=== PATIENT | female | born 1980 | race Caucasian/White ===

== ENCOUNTER 2016-08-14 16:41 | Emergency (ER) | payer OTHER ==
[2016-08-14 16:52] VITALS: BP 129/73; PULSE 78; RESP 18; TEMP 97.9
[2016-08-14] MEDS ORDERED: DIPH,PERTUS(ACELL)TETVAC-LF 0.5 ML VIAL IM ONE (16:53)
--- NOTE | 2016-08-14 17:08 | XR ---
EXAMINATION TYPE: XR finger RT DATE OF EXAM: 08/14/2016 5:02 PM COMPARISON: NONE HISTORY: Injury with pain. TECHNIQUE: 3 views of right third finger are acquired. FINDINGS: There is acute comminuted displaced intra-articular fracture involving distal one half of t he third middle phalanx. Overlying soft tissue is unremarkable. IMPRESSION: As above. (Initial encounter close type post traumatic fracture).
[2016-08-14] MEDS ORDERED: CLINDAMYCIN 150 MG/ML 4 ML VIAL IM STA (17:42)
--- NOTE | 2016-08-14 17:46 | ED ---
Wound/Laceration HPI - General Chief Complaint: Wound/Laceration Stated Complaint: Finger Laceration Time Seen by Provider: 08/14/16 17:00 Source: patient, RN notes reviewed Mode of arrival: ambulatory Limitations: no limitations - History of Present Illness Initial Comments: 36-year-old female presents to the emergency Department chief complaint of right finger laceration. Patient states she did this today. Patient states that she is not seeing her tetanus. Patient denies any other injuries from the incident. Patient denies loss of sensation but states she does not have movement of the distal aspect of the finger. Patient denies any other injuries. Patient denies any recent fever, chills, shortness of breath, chest pain, back pain, abdominal pain, nausea vomiting, numbness or tingling, dysuria or hematuria, constipation or diarrhea, headaches or visual changes, or any other current symptoms. - Related Data Previous Rx's Medication Instructions Recorded Clindamycin [Cleocin] 450 mg PO Q8HR #90 capsule 08/14/16 Allergies Allergy/AdvReac Type Severity Reaction Status Date / Time cefaclor [From Ceclor] Allergy Unknown Verified 08/14/16 16:49 Review of Systems ROS Statement: Those systems with pertinent positive or pertinent negative responses have been documented in the HPI. ROS Other: All systems not noted in ROS Statement are negative. Past Medical History Past Medical History: No Reported History History of Any Multi-Drug Resistant Organisms: None Reported Past Surgical History: No Surgical Hx Reported Past Psychological History: No Psychological Hx Reported Smoking Status: Current every day smoker Past Alcohol Use History: Occasional Past Drug Use History: None Reported General Exam - General Exam Comments Initial Comments: General: The patient is awake and alert, in no distress, and does not appear acutely ill. Neck: The neck is supple, there is no tenderness or JVD. Cardiovascular: There is a regular rate and rhythm. No murmur, rub or gallop is appreciated. Respiratory: Lungs are clear to auscultation, respirations are non-labored, breath sounds are equal. No wheezes, stridor, rales, or rhonchi. Musculoskeletal: Sensation to have a 2+ pulses. Her strength. Patient does appear to 3 cm laceration along the dorsal aspect of the right middle finger to the distal aspect. Patient does appear to have an open fracture that does appear to have any involvement to the fact patient has normal range of motion of the DIP joint in the extension function. Patient has full flexion function. Neurological: CN II-XII intact, There are no obvious motor or sensory deficits. Coordination appears grossly intact. Speech is normal. Skin: Skin is warm and dry and no rashes or lesions are noted. Psychiatric: Normal mood and affect. Limitations: no limitations Course Vital Signs 08/14/16 16:49 Temperature 97.9 F Pulse Rate 78 Respiratory 18 Rate Blood Pressure 129/73 O2 Sat by Pulse 100 Oximetry Procedures - Procedures Initial comment: The skin was anesthetized with 1% lidocaine. The laceration was then cleansed with Betadine and irrigated with normal saline. The wound was inspected, and there isevidence of injury to deep structures and tendon. No foreign body was noted in the wound. A total of 2 skin sutures were placed utilizing 5-0 nylon to the right middle finger laceration. This was done by loose approximation due to the extent of the patient's injury. Patient will follow-up with hand surgery for additional care. Medical Decision Making - Medical Decision Making 36-year-old female presents to the emergency Department chief complaint of right finger laceration. Patient has extensive fracture along with tendon injury noted. We did loosely approximate the wound with 2 sutures in splint the patient for follow-up with hand. We did give her antibiotics. We discussed follow-up and return parameters and all patient's questions. She stated that she understood the plan. This time she will be discharged home. - Radiology Data Radiology results: report reviewed, image reviewed Disposition Clinical Impression: Laceration of right middle finger with tendon involvement, Fracture of phalanx of right middle finger, Crushing injury of finger of right hand Disposition: HOME SELF-CARE Condition: Stable Instructions: Laceration (ED) Additional Instructions: Please use medication as discussed. Please follow up with family doctor if symptoms have not improved over the next two days. Please return to the emergency room if your symptoms increase or worsen or for any other concerns. Prescriptions: Clindamycin [Cleocin] 450 mg PO Q8HR #90 capsule Referrals: Erickson Sims DO [Doctor of Osteopathic Medicine] - 1-2 days Time of Disposition: 17:46
== END 2016-08-14 18:00 | disposition home or self-care (01) ==
LOC: EC 16:41
DX: S61.212A Laceration without foreign body of right middle finger without damage to nail, initial encounter (principal); Z23 Encounter for immunization; Z88.8 Allergy status to other drugs, medicaments and biological substances; F17.200 Nicotine dependence, unspecified, uncomplicated; W45.8XXA Other foreign body or object entering through skin, initial encounter; Y92.89 Other specified places as the place of occurrence of the external cause
CPT/HCPCS: 12013; 90471; 90715; 96372; 99283

== ENCOUNTER → 2017-07-01 | Outpatient (CLI) | payer OTHER ==
--- NOTE | 2017-07-01 14:30 | US ---
EXAMINATION TYPE: US OB <=14 wks transvag DATE OF EXAM: 07/01/2017 COMPARISON: NONE CLINICAL HISTORY: Z36 Confirm Dates. LGA EXAM PERFORMED: Transvaginal (TV) and Transabdominal (TA) EXAM MEASUREMENTS: GESTATIONAL AGE / DATING Physician Established: not established yet Dates by LMP: (9 weeks/3 days) EDC: 01/31/2018 Dates by First Scan: No previous; this is first scan Dates by Current Scan for: (10 weeks/2 days) EDC: 01/25/2018 MATERNAL ANATOMY Uterus: 12.0 x 5.6 x 7.4cm, antegrade Right Ovary: 3.1 x 2.2 x 2.9cm Left Ovary: 2.7 x 1.6 x 2.1cm Post CDS / Adnexa: wnl Presence of free fluid: none seen GESTATION / SURVEY CRL: 3.4cm (10 weeks/2 days) MSD: wnl Yolk Sac (normal less than 6mm): 5mm Heart Rate: 175 bpm Rhythm: Normal IUP: Live IUP IMPRESSION: Single live intrauterine with a sonographic age of 10 weeks and 2 days and estimated date o f delivery of 01/25/2018. Dates are within one week of the menstrual age.
== END | disposition home or self-care (01) ==
LOC: RADUSWWP 13:34
PROVIDERS: ATTEND Obstetrics & Gynecology
DX: Z36.9 Encounter for antenatal screening, unspecified (principal); Z3A.10 10 weeks gestation of pregnancy
CPT/HCPCS: 76801; 76817

== ENCOUNTER 2018-01-27 06:00 | Inpatient (IN) | payer OTHER ==
--- NOTE | 2018-01-26 17:10 | P.HPOB ---
History of Present Illness H&P Date: 01/26/18 Chief Complaint: Induction of labor This is a 38-year-old female 1 para 0 with an estimated date of confinement of 01/25/2018, estimated gestational age of 40-2/7 weeks, who presents to labor and delivery for induction of labor secondary to postdates. She admits to good movement. She has been getting regular nonstress test due to advanced maternal age. She has been feeling irregular contractions and pressure. labs: Hepatitis B surface antigen-negative RPR-nonreactive Rubella-immune Blood type-O+ Antibody screen-negative HIV-nonreactive Hemoglobin-13.5 Random glucose-81 One hour Glucola-128 Group B streptococcus-negative Obstetrical history: Gynecologic history: No history of sexual transmitted diseases. Social history: She is single. She works part-time as a independent contractor. Review of Systems Constitutional: Denies chills, Denies fever Eyes: denies blurred vision, denies pain Cardiovascular: Denies chest pain, Denies shortness of breath Respiratory: Denies cough Gastrointestinal: Reports abdominal pain (Irregular contractions) Genitourinary: Reports pelvic pain, Reports Musculoskeletal: Reports low back pain Integumentary: Denies pruritus, Denies rash Neurological: Denies numbness, Denies weakness Psychiatric: Denies anxiety, Denies depression Past Medical History Past Medical History: No Reported History History of Any Multi-Drug Resistant Organisms: None Reported Past Surgical History: No Surgical Hx Reported Past Psychological History: No Psychological Hx Reported Smoking Status: Former smoker Past Alcohol Use History: None Reported Past Drug Use History: None Reported Medications and Allergies Home Medications Medication Instructions Recorded Confirmed Type Pnv,Calcium 72/Iron/Folic Acid 1 each PO 01/26/18 History [ Plus Tablet] Allergies Allergy/AdvReac Type Severity Reaction Status Date / Time cefaclor [From [facility]] Allergy Rash/Hives Verified 01/26/18 17:07 Exam Osteopathic Statement: *. No significant issues noted on an osteopathic structural exam other than those noted in the History and Physical/Consult. HEENT: Within normal limits Heart: Regular rate and rhythm Lungs: Clear to auscultation bilaterally Abdomen: Cervix: 1 cm/60%/-2 station heart tones: 140s by Doppler Extremities: Negative Homans Assessment and Plan (1) Post-dates Status: Acute Code(s): O48.0 - POST-TERM SNOMED Code(s): 73030851 (2) Advanced maternal age (AMA) in Status: Acute Code(s): RQG3507 - SNOMED Code(s): 846815238 Plan: Proceed with oxytocin induction of labor. Expectant management. Epidural anesthesia if desired.
[2018-01-27] MEDS ORDERED: CARBOPROST TROMETHAMINE 250 MCG/ML 1 ML AMP IM PRN (06:21)
[2018-01-27] MEDS ORDERED: OXYTOCIN 20 UNITS/1000 ML NS 1,000 ML IV SCH ×2 (06:21→23:12)
[2018-01-27] MEDS ORDERED: TERBUTALINE 1 MG/ML VIAL SQ PRN (06:21)
[2018-01-27] MEDS ORDERED: OXYTOCIN 10 UNIT/ML 1 ML VIAL IM PRN (06:21)
[2018-01-27] MEDS ORDERED: LIDOCAINE 1% 20 ML VIAL (10MG/ML) FOR IV START INTRADERMA PRN (06:21)
[2018-01-27] MEDS ORDERED: LIDOCAINE 0.5% (PF) 5 MG/ML (50 ML SDV) SQ PRN (06:21)
[2018-01-27] MEDS ORDERED: METHYLERGONOVINE 0.2 MG/ML 1 ML AMP IM PRN (06:21)
[2018-01-27] MEDS: LACTATED RINGERS 1,000 ML IV SCH ×4 (06:35→23:24)
[2018-01-27 06:41] VITALS: BMI 36.6
[2018-01-27 06:42] LABS: Basophils % (A) 0 %; Eosinophils # (A) 0.2 k/uL (0-0.7); Eosinophils % (A) 1 %; HCT 37.8 % (34.0-46.0); HGB 12.9 gm/dL (11.4-16.0); Lymphocytes % (A) 18 %; MCH 30.5 pg (25.0-35.0); MCV 89.7 fL (80.0-100.0); Mean Platelet Volume 7.4; Monocytes # (A) 0.6 k/uL (0-1.0); Monocytes % (A) 6 %; Neutrophils # (A) 8.2 k/uL (1.3-7.7); Neutrophils % (A) 73 %; Platelet Count 269 k/uL (150-450); RBC 4.21 m/uL (3.80-5.40); RDW 12.9 % (11.5-15.5); WBC 11.2 k/uL (3.8-10.6)
[2018-01-27] MEDS ORDERED: ceFAZolin IN SWFI 2 GM/20 ML SYRINGE IVP ONE (21:29)
[2018-01-27] MEDS ORDERED: CITRIC ACID-SODIUM CITRATE 15 ML CUP PO ONE (21:29)
[2018-01-27] MEDS ORDERED: CLINDAMYCIN 900 MG in DEXTROSE 5% IN WATER 50 ML IVPB STA ×2 (21:37)
[2018-01-27] MEDS ORDERED: OXYTOCIN 10 UNIT/ML 1 ML VIAL ONE (22:07)
[2018-01-27] MEDS ORDERED: KETOROLAC 30 MG/ML 1 ML VIAL ONE (22:07)
[2018-01-27] MEDS ORDERED: ONDANSETRON 4 MG/2 ML VIAL ONE (22:07)
[2018-01-27] MEDS ORDERED: NALBUPHINE 10 MG/ML VIAL (10ML MDV) ONE (22:07)
[2018-01-27] MEDS ORDERED: PHENYLEPHRINE-0.9% NACL SYG 1 MG/10 ML SYRINGE ONE (22:07)
[2018-01-27] MEDS ORDERED: MORPHINE SULFATE (PF) 0.3 MG/0.3 ML SYR ONE (22:07)
--- NOTE | 2018-01-27 22:51 | P.OP ---
Date of Procedure: 01/27/18 Preoperative Diagnosis: 1. Intrauterine at 40-2/7 weeks. 2. Failure to progress. 3. Advance maternal age. Postoperative Diagnosis: Same Procedure(s) Performed: Primary low transverse section Anesthesia: spinal (Duramorph) Surgeon: Crissy Hale Sliver Lapper #1: Darren Caruso Estimated Blood Loss (ml): 500 Pathology: other (Placenta) Condition: stable Disposition: floor Indications for Procedure: This is a 38-year-old female 1 para 0 at 40-2/7 weeks who presented for induction of labor. She underwent artificial rupture membranes with clear fluid noted and oxytocin induction of labor. She progressed almost 12 hours with cervical change to only 2 cm. At this point in time the decision was made to proceed with section for failure to progress. I have discussed the risks, benefits, and alternative therapies for the above- mentioned procedure and for both sedation/anesthesia as well as necessary blood products administration, if indicated, as they pertain to this patient. The patient has indicated her understanding and acceptance of the risks and procedures discussed. Operative Findings: A viable male is noted in the vertex presentation with scores of 9 at 1 minute and 9 at 5 minutes and infant weight of 7 lbs. 14 oz. Nuchal cord times one was noted. Slight asynclitic presentation was noted. Normal uterus tubes and ovaries are noted. Description of Procedure: The patient is taken to the operating room where she is placed in the dorsal supine position with leftward tilt after spinal Duramorph anesthesia is given. She is prepped and draped in the normal sterile fashion. Skin was tested and found to be adequately anesthetized. A Pfannenstiel skin incision was made with a scalpel. A second knife was used to carry the incision down to the underlying layer of fascia. The fascia was nicked in the midline with a scalpel and then extended laterally bilaterally with Conrad scissors. The anterior lip of the fascia was grasped with 2 Nanci clamps and then dissected off the underlying rectus muscle in the midline with Conrad scissors. The inferior aspect of the fascial incision was grasped with 2 Nanci clamps and dissected off the underlying rectus muscle and the midline with Conrad scissors. Next the peritoneum layer was tented up with 2 hemostats and then entered sharply with the scalpel. The incision is extended superiorly and inferiorly with Metzenbaum scissors. Next a DeLee retractor is placed. The vesicouterine peritoneum is entered sharply with Metzenbaum scissors and extended laterally bilaterally with Metzenbaum scissors and then the bladder flap is pushed inferiorly. The lower uterine segment is incised in transverse fashion with the scalpel and then bluntly entered with a hemostat. Clear fluid is noted. The incision was then extended laterally bilaterally with 2 fingers. Next the infant's head is delivered through the incision. Nose and mouth are bulb suctioned. The remainder of the is easily delivered and placed on mother 's abdomen. Cord is clamped and cut. Cord blood was obtained secondary to O+ blood type. is taken to warmer by nursing staff. Uterine fundus is gently massaged and placenta is delivered manually. Uterus is exteriorized and cleared of all clots and debris. Uterine incision is closed with 0 Vicryl suture in a running locked fashion. A second layer of 0 Vicryl suture is used in a running fashion for hemostasis. Once adequate hemostasis as assured, the vesicouterine peritoneum is reapproximated with 2-0 Vicryl suture in a running fashion. Posterior cul-de-sac is suctioned of all clots and debris. Uterus is returned to the abdomen. Incision is noted to be hemostatic. Peritoneal layer is closed with 0 Vicryl suture in a running fashion. Muscle layer is reapproximated with 0 Vicryl suture in interrupted fashion. Fascia layer is then closed with 0 PDS suture with 2 sutures meeting in the midline and the knots buried in either side and in the midline. The subcutaneous tissue was then closed with 2-0 Vicryl suture. Skin layer was then closed with mike. All sponge and needle counts are correct. The patient is taken to recovery room in stable condition.
[2018-01-27] MEDS ORDERED: ONDANSETRON 4 MG/2 ML VIAL IVP PRN (23:12)
[2018-01-27] MEDS ORDERED: METOCLOPRAMIDE 5 MG/ML 2 ML VIAL IVP PRN (23:12)
[2018-01-27] MEDS ORDERED: HYDROcodone/APAP 7.5-325MG 1 EACH TAB PO PRN (23:12)
[2018-01-27] MEDS ORDERED: diphenhydrAMINE 25 MG CAP PO PRN (23:12)
[2018-01-27] MEDS ORDERED: IBUPROFEN 600 MG TAB PO PRN (23:12)
[2018-01-27] MEDS ORDERED: NALOXONE 0.4 MG/ML 1 ML VIAL IV PRN (23:12)
[2018-01-27] MEDS ORDERED: SIMETHICONE 80 MG CHEWABLE PO PRN (23:12)
[2018-01-27] MEDS ORDERED: diphenhydrAMINE 50 MG/ML 1 ML VIAL IVP PRN ×2 (23:12)
[2018-01-27] MEDS ORDERED: ZOLPIDEM 5 MG TAB PO PRN (23:12)
[2018-01-27] MEDS ORDERED: diphenhydrAMINE 50 MG CAP PO PRN (23:12)
[2018-01-27] MEDS ORDERED: LANOLIN CREAM 5 GM TUBE TOPICAL PRN (23:12)
[2018-01-27] MEDS ORDERED: ACETAMINOPHEN TAB 325 MG TAB PO PRN (23:12)
[2018-01-28] MEDS: LACTATED RINGERS 1,000 ML IV SCH (00:56)
--- NOTE | 2018-01-28 06:19 | P.PN ---
Progress Note - Text Progress Note Date: 01/28/18 Postoperative day 1 status post section under spinal anesthesia and intrathecal Duramorph for postoperative analgesia.The patient is doing well, there is mild generalized skin itching. There are no other anesthesia related complications. The patient denies any paresthesia or weakness in the lower extremities. Further management as per the patient primary team.
[2018-01-28 06:42] LABS: Basophils % (A) 0 %; Eosinophils # (A) 0.1 k/uL (0-0.7); Eosinophils % (A) 0 %; HCT 31.8 % (34.0-46.0); Lymphocytes # (A) 1.6 k/uL (1.0-4.8); Lymphocytes % (A) 10 %; MCH 31.2 pg (25.0-35.0); MCHC 34.7 g/dL (31.0-37.0); MCV 89.9 fL (80.0-100.0); Mean Platelet Volume 7.4; Monocytes # (A) 0.6 k/uL (0-1.0); Monocytes % (A) 3 %; Neutrophils # (A) 14.6 k/uL (1.3-7.7); Neutrophils % (A) 86 %; Platelet Count 229 k/uL (150-450); RBC 3.54 m/uL (3.80-5.40)
[2018-01-28] MEDS: KETOROLAC 30 MG/ML 1 ML VIAL IVP PRN ×3 (08:33→22:39)
[2018-01-28] MEDS: SENNOSIDES-DOCUSATE SODIUM 1 EACH TAB PO SCH ×2 (08:33→19:42)
[2018-01-28 09:03] VITALS: RESP 16
--- NOTE | 2018-01-28 09:27 | P.PNOBGPC ---
Subjective - Subjective Principal diagnosis: Status post primary section postoperative day #1 Interval history: Patient is doing well. She is fairly comfortable now. She is not passing flatus or bowel movement yet. She is breast-feeding well. Patient reports: Reports appetite normal, Reports pain well controlled, Reports ambulating normally : doing well, nursing well Objective - Vital Signs Latest vital signs: Vital Signs Temp Pulse Resp BP Pulse Ox 01/28/18 08:00 98.2 F 96 16 108/62 99 01/28/18 04:00 98.1 F 95 15 107/51 98 01/28/18 00:56 98.2 F 81 15 110/58 01/28/18 00:26 83 15 121/59 01/27/18 23:56 83 15 116/56 96 01/27/18 23:41 98.1 F 83 15 117/60 96 01/27/18 23:26 81 15 115/57 95 01/27/18 23:11 97.6 F 84 15 111/56 96 01/27/18 22:56 99.5 F 89 15 110/58 94 L Intake and Output 01/27/18 01/28/18 01/28/18 22:59 06:59 14:59 Intake Total 1500 480 Output Total 800 600 Balance 700 -600 480 Intake: IV 1500 Oral 480 Output: Urine 300 600 Uretheral (Lino) 300 Estimated Blood Loss 500 - Exam Extremities: Present: normal. Absent: tenderness Abdomen: Present: normal appearance, soft (Positive bowel sounds 4). Absent: distention Incision: Present: normal, dry, intact. Absent: erythematous Uterus: Present: normal, firm. Absent: tenderness - Labs Labs: Abnormal Lab Results - Last 24 Hours (Table) 01/28/18 Range/Units 06:10 WBC 17.0 H (3.8-10.6) k/uL RBC 3.54 L (3.80-5.40) m/uL Hgb 11.0 L (11.4-16.0) gm/dL Hct 31.8 L (34.0-46.0) % Neutrophils # 14.6 H (1.3-7.7) k/uL Assessment and Plan Assessment: Impression is status post primary section postoperative day #1 (1) Post-dates Current Visit: No Status: Acute Code(s): O48.0 - POST-TERM SNOMED Code(s): 04577743 (2) Advanced maternal age (AMA) in Current Visit: No Status: Acute Code(s): MON9229 - SNOMED Code(s): 288529294 Plan: Encouraged ambulation. Will advance diet as tolerated after flatus. Continue postoperative care.
[2018-01-28] MEDS: HYDROcodone/APAP 5-325MG 1 EACH TAB PO PRN (22:46)
[2018-01-29] MEDS: LACTATED RINGERS 1,000 ML IV SCH (00:16)
[2018-01-29] MEDS: HYDROcodone/APAP 5-325MG 1 EACH TAB PO PRN ×2 (06:03→12:45)
[2018-01-29] MEDS: SENNOSIDES-DOCUSATE SODIUM 1 EACH TAB PO SCH (08:31)
[2018-01-29 08:35] VITALS: BP 107/60; PULSE 80; TEMP 98.1
--- NOTE | 2018-01-29 09:16 | P.DS ---
Providers Date of admission: 01/27/18 06:13 Expected date of discharge: 01/29/18 Attending physician: Crissy Hale Primary care physician: Stated None - Discharge Diagnosis(es) (1) Post-dates Current Visit: No Status: Acute (2) Advanced maternal age (AMA) in Current Visit: No Status: Acute Hospital Course: This is a 38 Hale female 1 para 0 at 40-2/7 weeks who presented for induction of labor. She underwent oxytocin induction of labor and artificial rupture membranes with clear fluid noted. She reached a maximum of 2 cm and then consented to section for failure to progress. She underwent a primary low transverse section on 01/27/2018 and delivered a viable male infant with scores of 9 at 1 minute and 9 at 5 minutes and weight of 7 lbs. 14 oz. Her postoperative course has been essentially uncomplicated. She is currently postoperative day #2 and is passing flatus but no bowel movement yet. Her pain is fairly well controlled with ibuprofen and [place]. Lochia is decreasing. She is breast-feeding. Vital signs are stable. Abdomen is soft with fundus firm and nontender. Incision is clean dry and intact. Positive bowel sounds 4 are noted. Extremities show negative Homans. Impression is status post primary section postoperative day #2. Plan is to discharge home today. She will be given a prescription for ibuprofen and [place]. She has signed starting opioid consent form. She will be given 7 days worth of [place]. She will also be given a prescription for a breast pump. She is advised to follow-up in the office in 1 week for a postoperative check and in 6 weeks for check. Routine instructions are given. She is advised to call the office if she has any further questions or concerns prior to her appointment time. Procedures: Oxytocin induction of labor Primary low transverse section for delivery viable male infant on 01/27 Patient Condition at Discharge: Stable Plan - Discharge Summary New Discharge Prescriptions: New HYDROcodone/APAP 5-325MG [[place] 5-325] 1 each PO Q4HR PRN #28 tab PRN Reason: Moderate Pain Ibuprofen [Motrin] 600 mg PO Q6HR PRN #60 tab PRN Reason: Mild Pain Or Fever >= 100.5 Continue Pnv,Calcium 72/Iron/Folic Acid [ Plus Tablet] 1 each PO ONCE Discharge Medication List Pnv,Calcium 72/Iron/Folic Acid [ Plus Tablet] 1 each PO ONCE 01/26/18 [ History] HYDROcodone/APAP 5-325MG [[place] 5-325] 1 each PO Q4HR PRN #28 tab 01/29/18 [Rx] Ibuprofen [Motrin] 600 mg PO Q6HR PRN #60 tab 01/29/18 [Rx] Follow up Appointment(s)/Referral(s): Crissy Hale DO [Doctor of Osteopathic Medicine] - 1 Week Activity/Diet/Wound Care/Special Instructions: Instructions 1. Do not begin any exercise program for 3 weeks. 2. Do not resume sexual relations for 3 weeks or longer if uncomfortable. 3. You may take tub baths or showers at any time. 4. You may use tampons if desired after 3 weeks. 5. Keep the area of episiotomy (stitches) clean and dry. 6. If you are not nursing, wear a good fitting, supportive bra during the day and limit fluid intake for at least 1 week to prevent breast engorgement. 7. Call the office, [phone], within the next week to make appointment for your 6 week checkup if it has not already been made. 8. Report any of the following occurrences to the doctor promptly: a. Heavy, excessive bleeding b. Chills, fever c. Burning or frequency of urination d. Pain or redness and breasts if nursing e. Increasing pain or swelling in episiotomy (stitches). In addition to the above instructions, the following additional should be followed: 1. No heavy lifting or straining (exercising) until after 6 week checkup. 2. Keep abdominal incision clean and dry: You may wear a dressing if more comfortable. 3. Make office appointment for 10 days after going home or as instructed by her doctor. Discharge Disposition: HOME SELF-CARE
== END 2018-01-29 15:35 | disposition home or self-care (01) | DRG 788 ==
LOC: 4FBP 06:13
PROVIDERS: ADMIT Obstetrics & Gynecology; ATTEND Obstetrics & Gynecology
PROC: 3E033VJ Introduction of Other Hormone into Peripheral Vein, Percutaneous Approach (ICD-10-PCS; 2018-01-27)
PROC: 10907ZC Drainage of Amniotic Fluid, Therapeutic from Products of Conception, Via Natural or Artificial Opening (ICD-10-PCS; 2018-01-27)
PROC: 10D00Z1 Extraction of Products of Conception, Low, Open Approach (ICD-10-PCS; principal; 2018-01-27 22:07)
DX: O48.0 Post-term pregnancy (principal); Z37.0 Single live birth; O62.2 Other uterine inertia; O69.81X0 Labor and delivery complicated by cord around neck, without compression, not applicable or unspecified; Z3A.40 40 weeks gestation of pregnancy; Z87.891 Personal history of nicotine dependence; Z88.1 Allergy status to other antibiotic agents
CPT/HCPCS: 85025; 86850; 86900; 86901; 88307

== ENCOUNTER → 2020-02-23 | Outpatient (CLI) | payer OTHER ==
--- NOTE | 2020-02-23 16:15 | US ---
EXAMINATION TYPE: Ultrasound OB <= 14 week fetus DATE OF EXAM: 02/23/2020 3:03 PM COMPARISON: NONE CLINICAL HISTORY: 40-year-old female Z36 CONFIRM DATES. Confirm Dates, pt has no complaints at this t estela EXAM PERFORMED: Transabdominal (TA) FINDINGS: EXAM MEASUREMENTS: GESTATIONAL AGE / DATING Physician Established: (12 weeks/0 days) EDC: 09/06/2020 Dates by LMP: (12 weeks/0 days) EDC: 09/06/2020 Dates by First Scan: No prior Dates by Current Scan for: (12 weeks/0 days) EDC: 09/06/2020 MATERNAL ANATOMY Uterus: 14.8 x 7.1 x 8.36 cm Right Ovary: 2.4 x 1.4 x 2.5 cm Left Ovary: 2.7 x 2.1 x 2.5 cm Post CDS / Adnexa: wnl Presence of free fluid: No Presence of corpus luteal cyst: Left Ovary= 2.4 x 1.4 x 1.9 cm Presence of subchorionic bleed: No GESTATION / SURVEY CRL: 5.2 cm (12 weeks/0 days) MSD: wnl Heart Rate: 151 bpm Rhythm: Normal IUP: Viable IUP Nuchal Translucency 10-14wks (normal less than 3mm): 1 mm Edge Cutter notes: Single, viable IUP/ No abnormality visualized at this time IMPRESSION: 1. Single live intrauterine with estimated gestational age of 12 weeks 0 days by LMP. [facility] nt ultrasound biometry is exactly concordant. 2. A 2.4 cm corpus luteum within the left ovary. 3. Complete survey recommended at 18-20 weeks.
== END | disposition home or self-care (01) ==
LOC: RADUSWWP 14:50
PROVIDERS: ATTEND Obstetrics & Gynecology
DX: O34.81 Maternal care for other abnormalities of pelvic organs, first trimester (principal); O09.521 Supervision of elderly multigravida, first trimester; N83.12 Corpus luteum cyst of left ovary; Z3A.12 12 weeks gestation of pregnancy
CPT/HCPCS: 76801; 76813

== ENCOUNTER 2020-08-30 06:15 | Inpatient (IN) | payer OTHER ==
--- NOTE | 2020-08-29 12:36 | P.HPOB ---
History of Present Illness H&P Date: 08/29/20 Chief Complaint: Scheduled repeat section with tubal This is a 40 y.o. female, 2, para 1, with an estimated date of confinement of 09/06/2020, estimated gestational age of 39 weeks, who presents for scheduled repeat section with bilateral partial salpingectomy for family planning. Her has been uncomplicated. She has been doing twice weekly NSTs for AMA. labs: GC/Chlamydia/Trich-neg Hepatitis B surface antigen-neg RPR-NR Rubella-immune Blood type-O+ Antibody screen-neg HIV-NR Hemoglobin-14.2 Random glucose-84 1 hr. GTT-128 GBS-neg OB Hx: History of 1 section at 40 weeks due to failed induction. 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 Review of Systems Constitutional: Denies chills, Denies fever Eyes: denies blurred vision, denies pain Ears, nose, mouth and throat: Denies headache, Denies sore throat Cardiovascular: Denies chest pain, Denies shortness of breath Respiratory: Denies cough Genitourinary: Reports , Denies dysuria, Denies hematuria Musculoskeletal: Reports low back pain Integumentary: Denies pruritus, Denies rash Neurological: Denies numbness, Denies weakness Psychiatric: Denies anxiety, Denies depression Past Medical History Past Medical History: No Reported History History of Any Multi-Drug Resistant Organisms: None Reported Past Surgical History: No Surgical Hx Reported Past Anesthesia/Blood Transfusion Reactions: No Reported Reaction Past Psychological History: Anxiety Past Alcohol Use History: None Reported Past Drug Use History: None Reported - Past Family History Mother Family Medical History: Cancer Additional Family Medical History / Comment(s): Grandfather Medications and Allergies Home Medications Medication Instructions Recorded Confirmed Type Pnv,Calcium 72/Iron/Folic Acid 1 each PO ONCE 01/26/18 08/30/20 History [ Plus Tablet] Allergies Allergy/AdvReac Type Severity Reaction Status Date / Time cefaclor [From [facility]] Allergy Rash/Hives Verified 08/30/20 06:23 Exam Osteopathic Statement: *. No significant issues noted on an osteopathic structural exam other than those noted in the History and Physical/Consult. HEENT: within normal limits Heart: regular rate and rhythm Lungs: clear to auscultation bilaterally Abdomen: Cervix: closed/60%/floating Extremities: neg. Ame's. Results Result Diagrams: 08/30/20 06:30 Assessment and Plan (1) 39 weeks gestation of Current Visit: No Status: Acute Code(s): Z3A.39 - 39 WEEKS GESTATION OF SNOMED Code(s): 73727520 (2) Previous delivery affecting Current Visit: No Status: Acute Code(s): O34.219 - MATERNAL CARE FOR UNSP TYPE SCAR FROM PREVIOUS DEL SNOMED Code(s): 140872204 (3) Family planning Current Visit: No Status: Acute Code(s): Z30.09 - ENCOUNTER FOR OTH GENERAL CNSL AND ADVICE ON CONTRACEPTION SNOMED Code(s): 355042707 (4) Advanced maternal age (AMA) in Current Visit: No Status: Acute Code(s): FCQ8619 - SNOMED Code(s): 354885633 Plan: Proceed with repeat low transverse section with bilateral partial salpingectomy. I have discussed the risks, benefits, and alternative therapies for the above- mentioned procedure and for both sedation/anesthesia as well as necessary blood products administration, if indicated, as they pertain to this patient. The patient has indicated her understanding and acceptance of the risks and procedures discussed.
[2020-08-30] MEDS ORDERED: CITRIC ACID-SODIUM CITRATE 15 ML CUP PO ONE (06:23)
[2020-08-30] MEDS ORDERED: LIDOCAINE 1% (10MG/ML) FOR IV START INTRADERMA PRN (06:23)
[2020-08-30] MEDS ORDERED: LACTATED RINGERS 1,000 ML IV ONE (06:23)
[2020-08-30] MEDS ORDERED: CLINDAMYCIN 900 MG in DEXTROSE 5% IN WATER 50 ML IVPB ONE ×2 (06:30)
[2020-08-30] MEDS ORDERED: GENTAMICIN 400 MG in SODIUM CHLORIDE 0.9% 100 ML IVPB ONE (06:45)
[2020-08-30 07:15] LABS: Basophils % (A) 0 %; Eosinophils # (A) 0.2 k/uL (0-0.7); Eosinophils % (A) 2 %; HCT 40.9 % (34.0-46.0); HGB 13.9 gm/dL (11.4-16.0); Lymphocytes # (A) 2.5 k/uL (1.0-4.8); Lymphocytes % (A) 24 %; MCV 90.9 fL (80.0-100.0); Mean Platelet Volume 7.5; Monocytes # (A) 0.8 k/uL (0-1.0); Monocytes % (A) 8 %; Neutrophils # (A) 6.9 k/uL (1.3-7.7); Neutrophils % (A) 64 %; Platelet Count 277 k/uL (150-450); RBC 4.49 m/uL (3.80-5.40); RDW 13.3 % (11.5-15.5); WBC 10.8 k/uL (3.8-10.6)
[2020-08-30] MEDS: LACTATED RINGERS 1,000 ML IV SCH ×3 (07:56→23:18)
[2020-08-30] MEDS ORDERED: ONDANSETRON 4 MG/2 ML VIAL ONE (08:00)
[2020-08-30] MEDS ORDERED: KETOROLAC 15 MG/ML 1 ML VIAL ONE (08:00)
[2020-08-30] MEDS ORDERED: MORPHINE SULFATE (PF) 0.3 MG/0.3 ML SYR ONE (08:00)
[2020-08-30] MEDS ORDERED: NALBUPHINE 10 MG/ML (1 ML AMP) ONE (08:00)
[2020-08-30] MEDS ORDERED: OXYTOCIN 10 UNIT/ML 1 ML VIAL ONE (08:00)
[2020-08-30] MEDS ORDERED: PHENYLEPHRINE-0.9% NACL SYG 1,000 MCG/10 ML SYRINGE ONE (08:00)
[2020-08-30] MEDS ORDERED: ePHEDrine SULFATE/0.9% NACL/PF 50 MG/5 ML SYRINGE IV ONE (08:00)
--- NOTE | 2020-08-30 08:56 | P.OP ---
Date of Procedure: 08/30/20 Preoperative Diagnosis: 1. Intrauterine at 39-0/7 weeks. 2. History of previous section. 3. Family Planning. 4. Advance maternal age. Postoperative Diagnosis: Same Procedure(s) Performed: Repeat low transverse section with bilateral partial salpingectomy Anesthesia: spinal (Duramorph) Surgeon: Crissy Hale Outside Cutter #1: Alisha Oconnor Estimated Blood Loss (ml): 300 Pathology: other (Portions of right and left fallopian tubes, placenta) Condition: stable Disposition: floor Indications for Procedure: This is a 40-year-old female 2 para 1 at 39-0/7 weeks who presented for scheduled repeat section with bilateral partial salpingectomy. I have discussed the risks, benefits, and alternative therapies for the above- mentioned procedure and for both sedation/anesthesia as well as necessary blood products administration, if indicated, as they pertain to this patient. The patient has indicated her understanding and acceptance of the risks and procedures discussed. Operative Findings: A viable female infant is noted in the vertex presentation with scores of 8 at 1 minute and 9 at 5 minutes and infant weight of 7 lbs. 13 oz. Nuchal cord times one was noted. Normal uterus tubes and ovaries are noted. Description of Procedure: The patient is taken to the operating room where she is placed in the dorsal supine position with leftward tilt after spinal Duramorph anesthesia is given. She is prepped and draped in the normal sterile fashion. Skin was tested and found to be adequately anesthetized. A Pfannenstiel skin incision was made with a scalpel through the previous laparotomy scar. A second knife was used to carry the incision down to the underlying layer of fascia. The fascia was nicked in the midline with a scalpel and then extended laterally bilaterally with Conrad scissors. The anterior lip of the fascia was grasped with 2 Nanci clamps and then dissected off the underlying rectus muscle in the midline with Conrad scissors. The inferior aspect of the fascial incision was grasped with 2 Nanci clamps and dissected off the underlying rectus muscle and the midline with Conrad scissors. Next the peritoneum layer was tented up with 2 hemostats and then entered sharply with the scalpel. The incision is extended superiorly and inferiorly with Metzenbaum scissors. Next a DeLee retractor is placed. The vesicouterine peritoneum is entered sharply with Metzenbaum scissors and extended laterally bilaterally with Metzenbaum scissors and then the bladder flap is pushed inferiorly. The lower uterine segment is incised in transverse fashion with the scalpel and then bluntly entered with a hemostat. Clear fluid is noted. The incision was then extended laterally bilaterally with 2 fingers. Next the 's head is delivered through the incision. Nuchal cord times one was reduced around the infant's head. Nose and mouth are bulb suctioned. The remainder of the infant is easily delivered and placed on mother's abdomen. Cord is clamped and cut. Infant is taken to warmer by nursing staff. Uterine fundus is gently massaged and placenta is delivered manually. Uterus is exteriorized and cleared of all clots and debris. Uterine incision is closed with 0 Vicryl suture in a running locked fashion. A second layer of 0 Vicryl suture is used in a running fashion for hemostasis. Next attention was turned to the fallopian tubes. The right fallopian tube is grasped in the midportion with a hemostat and the mesosalpinx is entered with Bovie cautery. 0 Vicryl suture is tied 2 times around both the proximal and distal portion of the tube. The knuckle of tube was then removed with Metzenbaum scissors. The ends of the tubes are then cauterized with Bovie cautery. The same procedure is carried out on the left fallopian tube. Good hemostasis is noted. Posterior cul-de-sac is suctioned of all clots and debris. Uterus is returned to the abdomen. Incision was noted to have a small bleed on the left side. This is reinforced with several interrupted stitches and good hemostasis is noted. Peritoneal layer is closed with 0 Vicryl suture in a running fashion. Muscle layer is reapproximated with 0 Vicryl suture in interrupted fashion. Fascia layer is then closed with 0 PDS suture with 2 sutures meeting in the midline and the knots buried in either side and in the midline. The subcutaneous tissue was then closed with 2-0 Vicryl suture. Skin layer was then closed with mike. All sponge and needle counts are correct. The patient is taken to recovery room in stable condition.
[2020-08-30] MEDS ORDERED: ONDANSETRON 4 MG/2 ML VIAL IVP PRN (09:11)
[2020-08-30] MEDS ORDERED: diphenhydrAMINE 50 MG CAP PO PRN (09:11)
[2020-08-30] MEDS ORDERED: diphenhydrAMINE 50 MG/ML 1 ML VIAL IVP PRN (09:11)
[2020-08-30] MEDS ORDERED: METOCLOPRAMIDE 5 MG/ML 2 ML VIAL IVP PRN (09:11)
[2020-08-30] MEDS ORDERED: OXYTOCIN 30 UNITS/500 ML NS 30 UNIT in SALINE 1 500ML.BAG IV SCH (09:11)
[2020-08-30] MEDS ORDERED: ZOLPIDEM 5 MG TAB PO PRN (09:11)
[2020-08-30] MEDS ORDERED: NALOXONE 0.4 MG/ML 1 ML VIAL IV PRN (09:11)
[2020-08-30] MEDS ORDERED: HYDROmorphone 2 MG TAB PO PRN ×2 (09:11)
[2020-08-30] MEDS ORDERED: LANOLIN CREAM 5 GM TUBE TOPICAL PRN (09:11)
[2020-08-30] MEDS ORDERED: diphenhydrAMINE 25 MG CAP PO PRN (09:11)
[2020-08-30] MEDS: SENNOSIDES-DOCUSATE SODIUM 1 EACH TAB PO SCH ×2 (09:59→19:28)
[2020-08-30] MEDS: ACETAMINOPHEN TAB 500 MG TAB PO SCH ×3 (11:24→19:28)
[2020-08-30] MEDS: diphenhydrAMINE 50 MG/ML 1 ML VIAL IVP PRN ×2 (14:12→23:24)
[2020-08-30] MEDS: IBUPROFEN 600 MG TAB PO SCH ×2 (14:15→21:19)
[2020-08-30] MEDS: KETOROLAC 15 MG/ML 1 ML VIAL IVP SCH ×2 (17:01→23:19)
[2020-08-31] MEDS: ACETAMINOPHEN TAB 500 MG TAB PO SCH ×3 (04:12→18:04)
[2020-08-31] MEDS: IBUPROFEN 600 MG TAB PO SCH ×4 (04:13→21:09)
[2020-08-31] MEDS: KETOROLAC 15 MG/ML 1 ML VIAL IVP SCH ×3 (06:57→19:53)
[2020-08-31 07:07] LABS: Basophils % (A) 0 %; Eosinophils # (A) 0.3 k/uL (0-0.7); Eosinophils % (A) 3 %; HCT 35.1 % (34.0-46.0); HGB 11.2 gm/dL (11.4-16.0); Lymphocytes # (A) 2.1 k/uL (1.0-4.8); Lymphocytes % (A) 20 %; MCH 29.5 pg (25.0-35.0); MCHC 32.1 g/dL (31.0-37.0); MCV 92.1 fL (80.0-100.0); Mean Platelet Volume 7.5; Monocytes # (A) 0.7 k/uL (0-1.0); Monocytes % (A) 7 %; Neutrophils # (A) 7.3 k/uL (1.3-7.7); Neutrophils % (A) 68 %; Platelet Count 252 k/uL (150-450); RBC 3.81 m/uL (3.80-5.40); WBC 10.7 k/uL (3.8-10.6)
--- NOTE | 2020-08-31 07:33 | P.PN ---
Progress Note - Text Progress Note Date: 08/31/20 (817) Anesthesia Postop day 1 Subjective: Status Post section with Duramorph. Patient seen and examined. Doing well without complaint. VAS 0. No nausea or vomiting. Mild pruritus tolerable.. Afebrile. Gross lower extremity strength intact. . Without apparent anesthetic complications. Objective: Vital signs reviewed Heart: Regular Rate Lungs: Good chest excursion Abdomen: Appears nondistended Assessment: Status post with Duramorph postop day 1 Plan: Continue current care with your medical management.
[2020-08-31] MEDS: SENNOSIDES-DOCUSATE SODIUM 1 EACH TAB PO SCH ×2 (08:21→19:53)
--- NOTE | 2020-08-31 10:24 | P.PNOBGPC ---
Subjective - Subjective Principal diagnosis: Status post repeat section with tubal ligation POD #1 Interval history: Patient is doing okay. She is sad that her baby is in the nursery. She did notice some tenderness along her varicose vein on her left lower thigh this morning and did notice a hard knot. She denies any redness or swelling in her lower legs. She is passing flatus but no bowel movement yet. She is eating regular diet. She is pumping her breast milk. Lochia has been minimal. Her pain is been fairly well-controlled so far. Patient reports: Reports appetite normal, Reports voiding normally, Reports pain well controlled, Reports ambulating normally : other (In level I nursery) Objective - Vital Signs Latest vital signs: Vital Signs Temp Pulse Resp BP Pulse Ox 08/31/20 08:00 97.7 F 82 16 108/61 97 08/31/20 04:00 98.1 F 80 18 87/54 100 08/31/20 00:00 98.2 F 79 18 94/56 98 08/30/20 20:00 97.8 F 98 18 99/60 98 08/30/20 16:00 98.3 F 81 16 120/73 99 08/30/20 11:50 97.6 F 83 16 115/62 99 08/30/20 10:55 96.9 F L 89 16 123/60 96 08/30/20 10:25 80 16 123/62 95 Intake and Output 08/30/20 08/31/20 08/31/20 22:59 06:59 14:59 Output Total 1650 500 Balance -1650 -500 Output: Urine 1650 500 Uretheral (Lino) 250 Other: # Voids 1 1 1 - Exam Extremities: Present: normal, tenderness (Left leg just above the knee there is a small firm area consistent with a superficial blood clot, mildly tender, no redness) Abdomen: Present: normal appearance, soft (Positive bowel sounds 4). Absent: distention, tenderness Incision: Present: normal, dry. Absent: intact Uterus: Present: normal, firm. Absent: tenderness - Labs Labs: Abnormal Lab Results - Last 24 Hours (Table) 08/31/20 Range/Units 06:52 WBC 10.7 H (3.8-10.6) k/uL Hgb 11.2 L (11.4-16.0) gm/dL Assessment and Plan Assessment: Status post repeat low transverse section postoperative day #1 (1) 39 weeks gestation of Current Visit: No Status: Acute Code(s): Z3A.39 - 39 WEEKS GESTATION OF SNOMED Code(s): 92067160 (2) Previous delivery affecting Current Visit: No Status: Acute Code(s): O34.219 - MATERNAL CARE FOR UNSP TYPE SCAR FROM PREVIOUS DEL SNOMED Code(s): 665212470 (3) Family planning Current Visit: No Status: Acute Code(s): Z30.09 - ENCOUNTER FOR OT GENERAL CNSL AND ADVICE ON CONTRACEPTION SNOMED Code(s): 949172814 (4) Advanced maternal age (AMA) in Current Visit: No Status: Acute Code(s): ODJ8927 - SNOMED Code(s): 520047346 Plan: Continue with postoperative and care. Patient advised to put an ice pack on her left leg where her varicose vein is tender. May shower.
[2020-09-01] MEDS: KETOROLAC 15 MG/ML 1 ML VIAL IVP SCH (00:24)
[2020-09-01] MEDS: ACETAMINOPHEN TAB 500 MG TAB PO SCH ×2 (00:27→08:48)
[2020-09-01] MEDS: IBUPROFEN 600 MG TAB PO SCH ×3 (04:47→12:46)
[2020-09-01 08:38] VITALS: PULSE 75; RESP 16
[2020-09-01] MEDS: SENNOSIDES-DOCUSATE SODIUM 1 EACH TAB PO SCH (08:43)
--- NOTE | 2020-09-01 09:07 | P.DS ---
Providers Date of admission: 08/30/20 06:15 Expected date of discharge: 09/01/20 Attending physician: Crissy Hale Primary care physician: Stated None - Discharge Diagnosis(es) (1) 39 weeks gestation of Current Visit: No Status: Acute (2) Previous delivery affecting Current Visit: No Status: Acute (3) Family planning Current Visit: No Status: Acute (4) Advanced maternal age (AMA) in Current Visit: No Status: Acute Hospital Course: This is a 40-year-old female 2 para 1 at 39-0/7 weeks who presented for scheduled repeat section with bilateral partial salpingectomy area and she underwent the above procedure on 08/30/2020 and delivered a viable female with scores of 8 at 1 minute and 9 at 5 minutes and infant weight of 7 lbs. 13 oz. Her postoperative course has been essentially uncomplicated. She did develop was superficial blood clot on a varicose vein in her lower left thigh. This has been tender but no redness is noted around the area. Lochia is decreasing. She is planning on breast-feeding. Her baby has been in the level I nursery and just [facility]. Her pain is fairly well controlled. She is passing flatus and bowel movement. She is urinating without difficulty. She is understandably a little emotional this mor maricel it is unsure if she would like to go home today or wait until tomorrow. Vital signs are stable. Abdomen is soft with positive bowel sounds 4. Incision is clean dry and intact with mike in place. Extremities shows a small firm area above the left knee on the left thigh that is slightly tender but no redness is noted around the area. Extremities show negative Homans. Impression is status post repeat low transverse section with bilateral partial esophagectomy postoperative day #2. Plan is to potentially discharge home later today. Routine postoperative and instructions are given. She will be given a prescription for ibuprofen and some [place]. She has signed a consent form and has been counseled regarding opioid use. She has a breast pump at home. She is advised follow-up in the office in 1 week for a postoperative check and in 6 weeks for check. Mike will be removed and Steri- Strips placed prior to discharge. Procedures: Repeat low transverse section with bilateral partial salpingectomy on 08/30/2020 Patient Condition at Discharge: Stable Plan - Discharge Summary Discharge Rx Participant: No New Discharge Prescriptions: New Ibuprofen [Motrin] 600 mg PO Q6H #60 tab HYDROcodone/APAP 5-325MG [[place] 5-325] 1 tab PO Q4HR PRN 3 Days #18 tab PRN Reason: Moderate To Severe Pain No Action Pnv,Calcium 72/Iron/Folic Acid [ Plus Tablet] 1 each PO ONCE Discharge Medication List Pnv,Calcium 72/Iron/Folic Acid [ Plus Tablet] 1 each PO ONCE 01/26/18 [History] HYDROcodone/APAP 5-325MG [[place] 5-325] 1 tab PO Q4HR PRN 3 Days #18 tab 09/01/20 [Rx] Ibuprofen [Motrin] 600 mg PO Q6H #60 tab 09/01/20 [Rx] Follow up Appointment(s)/Referral(s): Crissy Hale DO [Doctor of Osteopathic Medicine] - 1 Week Activity/Diet/Wound Care/Special Instructions: Instructions 1. Do not begin any exercise program for 3 weeks. 2. Do not resume sexual relations for 3 weeks or longer if uncomfortable. 3. You may take tub baths or showers at any time. 4. You may use tampons if desired after 3 weeks. 5. Keep the area of episiotomy (stitches) clean and dry. 6. If you are not nursing, wear a good fitting, supportive bra during the day and limit fluid intake for at least 1 week to prevent breast engorgement. 7. Call the office, [phone], within the next week to make appointment for your 6 week checkup if it has not already been made. 8. Report any of the following occurrences to the doctor promptly: a. Heavy, excessive bleeding b. Chills, fever c. Burning or frequency of urination d. Pain or redness and breasts if nursing e. Increasing pain or swelling in episiotomy (stitches). In addition to the above instructions, the following additional should be followed: 1. No heavy lifting or straining (exercising) until after 6 week checkup. 2. Keep abdominal incision clean and dry: You may wear a dressing if more comfortable. 3. Make office appointment for 10 days after going home or as instructed by her doctor. Discharge Disposition: HOME SELF-CARE
[2020-09-01 12:46] VITALS: BP 134/64; TEMP 98.1
== END 2020-09-01 14:05 | disposition home or self-care (01) | DRG 785 ==
LOC: 4FBP 06:15
PROVIDERS: ADMIT Obstetrics & Gynecology; ATTEND Obstetrics & Gynecology
PROC: 0UB70ZZ Excision of Bilateral Fallopian Tubes, Open Approach (ICD-10-PCS; 2020-08-30)
PROC: 10D00Z1 Extraction of Products of Conception, Low, Open Approach (ICD-10-PCS; principal; 2020-08-30 08:00)
DX: O34.211 Maternal care for low transverse scar from previous cesarean delivery (principal); L29.9 Pruritus, unspecified; O69.81X0 Labor and delivery complicated by cord around neck, without compression, not applicable or unspecified; O87.4 Varicose veins of lower extremity in the puerperium; Z37.0 Single live birth; Z3A.39 39 weeks gestation of pregnancy; Z30.2 Encounter for sterilization
CPT/HCPCS: 85025; 86850; 86900; 86901; 88302; 88307

== ENCOUNTER 2020-09-08 17:47 | Emergency (ER) | payer OTHER ==
[2020-09-08 17:54] VITALS: TEMP 97.9
[2020-09-08] MEDS ORDERED: SODIUM CHLORIDE 0.9% 500 ML 500 ML IV STA (18:18)
--- NOTE | 2020-09-08 18:26 | ED ---
General Adult HPI - General Chief complaint: Chest Pain Stated complaint: Chest Pain Time Seen by Provider: 09/08/20 17:57 Source: patient, RN notes reviewed Mode of arrival: wheelchair Limitations: no limitations - History of Present Illness Initial comments: 40-year-old female presents to the emergency room for a chief complaint of chest pain. Patient reports that she has been having episodes of her heart pounding. She reports that she had a about 9 days ago. Patient states that her daughter was taken to [facility] and was due to be released today. Patient states last night she started to have these episodes. States they always happen right after she pumps except for this last time. Patient states the episode includes her heart racing in the top half Of her body turning red. She then starts shaking. Patient states these started around 5 AM and she was seen in [place] where an EKG was performed and patient was discharged home. She did see her NURSES' ASSOCIATION EXECUTIVE DIRECTOR today who recommended she go home and try to relax with her children and if symptoms worsen to go to the ER. Patient states it happened again and she was not pumping and felt she needed to be seen in the ER.Patient has no other complaints at this time including shortness of breath, chest pain, abdominal pain, nausea or vomiting, headache, or visual changes. - Related Data Home Medications Medication Instructions Recorded Confirmed Pnv,Calcium 72/Iron/Folic Acid 1 each PO ONCE 01/26/18 08/30/20 [ Plus Tablet] Previous Rx's Medication Instructions Recorded HYDROcodone/APAP 5-325MG [[place] 1 tab PO Q4HR PRN 3 Days #18 tab 09/01/20 5-325] Ibuprofen [Motrin] 600 mg PO Q6H #60 tab 09/01/20 Sulfamethox-Tmp 800-160Mg [Bactrim 1 tab PO Q12HR #14 tab 09/01/20 DS 800-160 mg] Allergies Allergy/AdvReac Type Severity Reaction Status Date / Time cefaclor [From [facility]] Allergy Rash/Hives Verified 09/08/20 17:50 Review of Systems ROS Statement: Those systems with pertinent positive or pertinent negative responses have been documented in the HPI. ROS Other: All systems not noted in ROS Statement are negative. Past Medical History Past Medical History: No Reported History History of Any Multi-Drug Resistant Organisms: None Reported Past Surgical History: Section Additional Past Surgical History / Comment(s): tooth extraction Past Anesthesia/Blood Transfusion Reactions: No Reported Reaction Additional Past Anesthesia/Blood Transfusion Reaction / Comment(s): no hx blood transfusion Past Psychological History: Anxiety Smoking Status: Never smoker Past Alcohol Use History: None Reported Past Drug Use History: None Reported - Past Family History Mother Family Medical History: Cancer Additional Family Medical History / Comment(s): Grandfather General Exam Limitations: no limitations General appearance: alert, in no apparent distress, anxious, other (Tremulous) Head exam: Present: atraumatic, normocephalic, normal inspection Eye exam: Present: normal appearance, PERRL, EOMI. Absent: scleral icterus, conjunctival injection, periorbital swelling ENT exam: Present: normal exam, mucous membranes moist Neck exam: Present: normal inspection, full ROM Respiratory exam: Present: normal lung sounds bilaterally. Absent: respiratory distress, wheezes, rales, rhonchi, stridor Cardiovascular Exam: Present: tachycardia (Slight tachycardia), normal heart sounds. Absent: systolic murmur, diastolic murmur, rubs, gallop, clicks GI/Abdominal exam: Present: soft, normal bowel sounds. Absent: distended, tenderness, guarding, rebound, rigid Neurological exam: Present: alert Course Vital Signs 09/08/20 09/08/20 09/08/20 17:50 18:48 20:06 Temperature 97.9 F Pulse Rate 128 H 97 103 H Respiratory 20 16 19 Rate Blood Pressure 156/86 123/81 137/79 O2 Sat by Pulse 100 99 99 Oximetry EKG Findings - EKG Comments: EKG Findings:: sinus tachycardia, ventricular rate 105, IN 132, QTC 452 Medical Decision Making - Medical Decision Making It is are stable. Patient is well appearing. EKG is unremarkable. White count 15.2 which is likely reactive. CMP unremarkable. Troponin negative. CTA shows no evidence for pulmonary embolism. Patient reevaluated. She was able to pump and did not have another episode. At this time patient is stable for discharge home. Recommend she follow up with NURSES' ASSOCIATION EXECUTIVE DIRECTOR and primary. She will return here for any worsening symptoms. I discussed this case with attending Dr. Roman who agrees with this assessment and treatment plan. - Lab Data Result diagrams: 09/08/20 18:20 09/08/20 18:20 Lab Results 09/08/20 09/08/20 09/08/20 Range/Units 18:20 18:20 18:20 WBC 15.2 H (3.8-10.6) k/uL RBC 4.32 (3.80-5.40) m/uL Hgb 13.2 (11.4-16.0) gm/dL Hct 38.4 (34.0-46.0) % MCV 89.0 (80.0-100.0) fL MCH 30.6 (25.0-35.0) pg MCHC 34.4 (31.0-37.0) g/dL RDW 12.6 (11.5-15.5) % Plt Count 364 (150-450) k/uL MPV 6.8 Neutrophils % 82 % Lymphocytes % 12 % Monocytes % 5 % Eosinophils % 0 % Basophils % 0 % Neutrophils # 12.5 H (1.3-7.7) k/uL Lymphocytes # 1.7 (1.0-4.8) k/uL Monocytes # 0.7 (0-1.0) k/uL Eosinophils # 0.0 (0-0.7) k/uL Basophils # 0.0 (0-0.2) k/uL PT 10.3 (9.0-12.0) sec INR 1.0 (<1.2) APTT 23.2 (22.0-30.0) sec Sodium 137 (137-145) mmol/L Potassium 4.7 (3.5-5.1) mmol/L Chloride 104 (98-107) mmol/L Carbon Dioxide 22 (22-30) mmol/L Anion Gap 11 mmol/L BUN 17 (7-17) mg/dL Creatinine 0.83 (0.52-1.04) mg/dL Est GFR (CKD-EPI)AfAm >90 (>60 ml/min/1.73 sqM) Est GFR (CKD-EPI)NonAf >90 (>60 ml/min/1.73 sqM) Glucose 131 H (74-99) mg/dL Calcium 10.5 H (8.4-10.2) mg/dL Magnesium 1.8 (1.6-2.3) mg/dL Total Bilirubin 0.4 (0.2-1.3) mg/dL AST 25 (14-36) U/L ALT 19 (4-34) U/L Alkaline Phosphatase 90 (38-126) U/L Troponin I (0.000-0.034) ng/mL NT-Pro-B Natriuret Pep pg/mL Total Protein 6.8 (6.3-8.2) g/dL Albumin 4.2 (3.5-5.0) g/dL Lipase 85 (23-300) U/L Urine Color Urine Appearance (Clear) Urine pH (5.0-8.0) Ur Specific [place] (1.001-1.035) Urine Protein (Negative) Urine Glucose (UA) (Negative) Urine Ketones (Negative) Urine Blood (Negative) Urine Nitrite (Negative) Urine Bilirubin (Negative) Urine Urobilinogen (<2.0) mg/dL Ur Leukocyte Esterase (Negative) 09/08/20 09/08/20 09/08/20 Range/Units 18:20 18:20 18:32 WBC (3.8-10.6) k/uL RBC (3.80-5.40) m/uL Hgb (11.4-16.0) gm/dL Hct (34.0-46.0) % MCV (80.0-100.0) fL MCH (25.0-35.0) pg MCHC (31.0-37.0) g/dL RDW (11.5-15.5) % Plt Count (150-450) k/uL MPV Neutrophils % % Lymphocytes % % Monocytes % % Eosinophils % % Basophils % % Neutrophils # (1.3-7.7) k/uL Lymphocytes # (1.0-4.8) k/uL Monocytes # (0-1.0) k/uL Eosinophils # (0-0.7) k/uL Basophils # (0-0.2) k/uL PT (9.0-12.0) sec INR (<1.2) APTT (22.0-30.0) sec Sodium (137-145) mmol/L Potassium (3.5-5.1) mmol/L Chloride (98-107) mmol/L Carbon Dioxide (22-30) mmol/L Anion Gap mmol/L BUN (7-17) mg/dL Creatinine (0.52-1.04) mg/dL Est GFR (CKD-EPI)AfAm (>60 ml/min/1.73 sqM) Est GFR (CKD-EPI)NonAf (>60 ml/min/1.73 sqM) Glucose (74-99) mg/dL Calcium (8.4-10.2) mg/dL Magnesium (1.6-2.3) mg/dL Total Bilirubin (0.2-1.3) mg/dL AST (14-36) U/L ALT (4-34) U/L Alkaline Phosphatase (38-126) U/L Troponin I <0.012 (0.000-0.034) ng/mL NT-Pro-B Natriuret Pep 26 pg/mL Total Protein (6.3-8.2) g/dL Albumin (3.5-5.0) g/dL Lipase (23-300) U/L Urine Color Light Yellow Urine Appearance Clear (Clear) Urine pH 5.5 (5.0-8.0) Ur Specific [place] 1.008 (1.001-1.035) Urine Protein Negative (Negative) Urine Glucose (UA) Negative (Negative) Urine Ketones Negative (Negative) Urine Blood Negative (Negative) Urine Nitrite Negative (Negative) Urine Bilirubin Negative (Negative) Urine Urobilinogen <2.0 (<2.0) mg/dL Ur Leukocyte Esterase Negative (Negative) Disposition Clinical Impression: Palpitations, Skin blushing/flushing, Occasional tremors Disposition: HOME SELF-CARE Condition: Good Instructions (If sedation given, give patient instructions): Heart Palpitations (ED) Additional Instructions: Please follow up with primary care and OBGYN. If symptoms worsen return to the emergency room. Is patient prescribed a controlled substance at d/c from ED?: No Referrals: Crissy Hale DO [Doctor of Osteopathic Medicine] - 1-2 days Time of Disposition: 20:36
[2020-09-08 18:35] LABS: Basophils % (A) 0 %; Eosinophils % (A) 0 %; HCT 38.4 % (34.0-46.0); HGB 13.2 gm/dL (11.4-16.0); Lymphocytes # (A) 1.7 k/uL (1.0-4.8); Lymphocytes % (A) 12 %; MCH 30.6 pg (25.0-35.0); MCHC 34.4 g/dL (31.0-37.0); Mean Platelet Volume 6.8; Monocytes # (A) 0.7 k/uL (0-1.0); Monocytes % (A) 5 %; Neutrophils # (A) 12.5 k/uL (1.3-7.7); Neutrophils % (A) 82 %; Platelet Count 364 k/uL (150-450); RBC 4.32 m/uL (3.80-5.40); RDW 12.6 % (11.5-15.5); WBC 15.2 k/uL (3.8-10.6)
[2020-09-08 18:39] LABS: Appearance,Urine Clear (Clear); Bilirubin,Urine Negative (Negative); Blood,Urine Negative (Negative); Color,Urine Light Yellow; Glucose,Urine (UA) Negative (Negative); Ketones,Urine Negative (Negative); Leukocyte Esterase,Urine Negative (Negative); Nitrite,Urine Negative (Negative); PH, Urine 5.5 (5.0-8.0); Protein,Urine Negative (Negative); Specific Gravity,Urine 1.008 (1.001-1.035); Urobilinogen,Urine <2.0 mg/dL (<2.0)
[2020-09-08 18:51] LABS: ALT 19 U/L (4-34); AST 25 U/L (14-36); African American GFR (CKD) >90 (>60 ml/min/1.73 sqM); Albumin 4.2 g/dL (3.5-5.0); Alkaline Phosphatase 90 U/L (38-126); Anion Gap 11 mmol/L; Blood Urea Nitrogen 17 mg/dL (7-17); Calcium 10.5 mg/dL (8.4-10.2); Carbon Dioxide 22 mmol/L (22-30); Chloride 104 mmol/L (98-107); Glucose 131 mg/dL (74-99); Lipase 85 U/L (23-300); Magnesium 1.8 mg/dL (1.6-2.3); Non-African American GFR(CKD) >90 (>60 ml/min/1.73 sqM); Partial Thromboplastin Time 23.2 sec (22.0-30.0); Potassium 4.7 mmol/L (3.5-5.1); Prothrombin Time 10.3 sec (9.0-12.0); Sodium 137 mmol/L (137-145); Total Bilirubin 0.4 mg/dL (0.2-1.3); Total Protein 6.8 g/dL (6.3-8.2)
--- NOTE | 2020-09-08 19:19 | CT ---
EXAMINATION TYPE: CT chest angio for PE DATE OF EXAM: 09/08/2020 COMPARISON: none HISTORY: Episodes of chest pain/pressure. [address] DLP: 390.8 mGycm CONTRAST: CT chest with contrast and 3D reconstruction with MIP imaging is performed with IV Contrast, patient injected with 100 mL of Isovue 370. Contrast-enhanced CT of the chest was performed through the course of the pulmonary arteries with martha g and mediastinal window settings submitted. 3D reconstruction with MIP imaging was also performed. PULMONARY ARTERIES: The pulmonary arteries and their major tributaries are patent. I do not see vani dence for sizable filling defect to suggest pulmonary embolic process. LUNGS: The lungs are clear and free of infiltrate. No evidence for atelectasis. No pulmonary nodule or mass is detected. No pleural effusion. MEDIASTINUM: Thoracic aorta is of normal caliber,however, evaluation is limited given timing of the contrast bolus. If there is concern for thoracic aortic pathology consider CHEN. Correlate clinicall y . The heart is not enlarged. No evidence for mediastinal mass. No mediastinal lymph nodes greater than 1cm. HILAR STRUCTURES: No evidence for mass. No hilar lymph nodes greater than 1 cm. UPPER ABDOMEN: No significant abnormality is seen. IMPRESSION: 1. No evidence for Pulmonary embolism at this time.
[2020-09-08 20:18] VITALS: BP 137/79; PULSE 103; RESP 19
== END 2020-09-08 21:10 | disposition home or self-care (01) ==
LOC: EC 17:47
DX: R00.2 Palpitations (principal); R23.2 Flushing; R25.1 Tremor, unspecified; R07.9 Chest pain, unspecified; R00.0 Tachycardia, unspecified; F41.9 Anxiety disorder, unspecified; Z79.1 Long term (current) use of non-steroidal anti-inflammatories (NSAID); Z88.1 Allergy status to other antibiotic agents
CPT/HCPCS: 36415; 93005; 83880; 80053; 83690; 83735; 84484; 85025; 85610; 85730; 81003; 71275; 99285; 96360; 96361; Q9967

== ENCOUNTER 2021-04-25 16:32 | Emergency (ER) | payer OTHER ==
[2021-04-25 18:09] VITALS: RESP 18
[2021-04-25] MEDS ORDERED: MECLIZINE 12.5 MG TAB PO STA (19:06)
--- NOTE | 2021-04-25 19:11 | ED ---
General Adult HPI - General Chief complaint: ENT Stated complaint: Ear pain Time Seen by Provider: 04/25/21 18:54 Source: patient Mode of arrival: ambulatory Limitations: no limitations - History of Present Illness Initial comments: Dictation was produced using [employer] dictation software. please excuse any grammatical, word or spelling errors. Chief Complaint: 41-year-old female presents with vertigo History of Present Illness: Patient is 41-year-old female was presents to emergency Department for bouts of vertigo. Patient states that she started expressing symptoms of the last couple days. States positional. First time she also was yesterday. She looked down to picker feeder her child and then looked up and then experienced some intense sensation of the room spinning. She states she rested and it went away. Patient concerned that she has an ear infection. Denies any sore throat and runny nose. Denies any hearing loss. Patient states that she feels like her symptoms are worse whenever she tries to look up. No other complaints. The ROS documented in this emergency department record has been reviewed and confirmed by me. Those systems with pertinent positive or negative responses have been documented in the HPI. All other systems are other negative and/or noncontributory. PHYSICAL EXAM: General Impression: Alert and oriented x3, not in acute distress HEENT: Normocephalic atraumatic, extra-ocular movements intact, pupils equal and reactive to light bilaterally, mucous membranes moist, TMs clear bilaterally Cardiovascular: Heart regular rate and rhythm Chest: Able to complete full sentences, no retractions, no tachypnea Musculoskeletal: Pulses present and equal in all extremities, no peripheral edema Motor: no focal deficits noted Neurological: CN II-XII grossly intact, no focal motor or sensory deficits noted no nystagmus, patient moved through different head positions with no reproducing of vertigo or nystagmus Skin: Intact with no visualized rashes Psych: Normal affect and mood ED course: 41-year-old female presents to the emergency department click or presentation consistent with benign positional vertigo. She is asymptomatic at the bedside. Vertiginous symptoms are not reproduced at the bedside on physical examination. Vital signs upon arrival are within acceptable limits. Patient given prescription for Antivert. She is convinced that she might have an ear infection. She is given a prescription to take for the next couple days her symptoms do not improve. She is agreeable to plan. - Related Data Home Medications Medication Instructions Recorded Confirmed Pnv,Calcium 72/Iron/Folic Acid 1 each PO ONCE 01/26/18 08/30/20 [ Plus Tablet] Previous Rx's Medication Instructions Recorded HYDROcodone/APAP 5-325MG [[place] 1 tab PO Q4HR PRN 3 Days #18 tab 09/01/20 5-325] Ibuprofen [Motrin] 600 mg PO Q6H #60 tab 09/01/20 Sulfamethox-Tmp 800-160Mg [Bactrim 1 tab PO Q12HR #14 tab 09/01/20 DS 800-160 mg] Amoxicillin 875 mg PO Q12HR 10 Days #20 tablet 04/25/21 Meclizine [Antivert] 25 mg PO TID PRN #15 tab 04/25/21 Allergies Allergy/AdvReac Type Severity Reaction Status Date / Time cefaclor [From [facility]] Allergy Rash/Hives Verified 04/25/21 18:09 Review of Systems ROS Statement: Those systems with pertinent positive or pertinent negative responses have been documented in the HPI. ROS Other: All systems not noted in ROS Statement are negative. Past Medical History Past Medical History: No Reported History History of Any Multi-Drug Resistant Organisms: None Reported Past Surgical History: Section, Tubal Ligation Additional Past Surgical History / Comment(s): tooth extraction Past Anesthesia/Blood Transfusion Reactions: No Reported Reaction Additional Past Anesthesia/Blood Transfusion Reaction / Comment(s): no hx blood transfusion Past Psychological History: Anxiety Smoking Status: Never smoker Past Alcohol Use History: None Reported Past Drug Use History: None Reported - Past Family History Mother Family Medical History: Cancer Additional Family Medical History / Comment(s): Grandfather General Exam Limitations: no limitations Course Vital Signs 04/25/21 18:07 Temperature 98.2 F Pulse Rate 67 Respiratory 18 Rate Blood Pressure 131/78 O2 Sat by Pulse 99 Oximetry Medical Decision Making - Lab Data Lab Results 04/25/21 Range/Units 18:12 Coronavirus (PCR) Not Detected (Not Detectd) Disposition Clinical Impression: Vertigo Disposition: HOME SELF-CARE Condition: Fair Instructions (If sedation given, give patient instructions): Benign Paroxysmal Positional Vertigo (ED) Prescriptions: Amoxicillin 875 mg PO Q12HR 10 Days #20 tablet Meclizine [Antivert] 25 mg PO TID PRN #15 tab PRN Reason: dizziness Is patient prescribed a controlled substance at d/c from ED?: No Referrals: None,Stated [Primary Care Provider] - 1-2 days
[2021-04-25 19:38] VITALS: BP 141/78; PULSE 78; TEMP 98.7
== END 2021-04-25 19:39 | disposition home or self-care (01) ==
LOC: EC 16:32
DX: R42 Dizziness and giddiness (principal); Z20.822 Contact with and (suspected) exposure to COVID-19; F41.9 Anxiety disorder, unspecified; Z79.1 Long term (current) use of non-steroidal anti-inflammatories (NSAID); Z79.899 Other long term (current) drug therapy
CPT/HCPCS: 87635; 99284

== ENCOUNTER 2024-11-04 06:22 | Emergency (ER) | payer OTHER ==
[2024-11-04 06:27] VITALS: TEMP 97.9
--- NOTE | 2024-11-04 06:46 | ED ---
ENT HPI - General Chief complaint: ENT Stated complaint: Ear Pain Time Seen by Provider: 11/04/24 06:32 Source: patient, RN notes reviewed Mode of arrival: ambulatory Limitations: no limitations - History of Present Illness Initial comments: 44-year-old female presents emergency department with complaint left ear pain. Patient states that she was using a Q-tip and bumped her hand patient further. Patient states there is been a small amount of blood, pain to her left ear. Patient has a bunch of fluid. - Related Data Home Medications Medication Instructions Recorded Confirmed Vit No.180/Iron/Folic 1 each PO ONCE 01/26/18 08/30/20 [ Plus Vitamin-Mineral] Previous Rx's Medication Instructions Recorded HYDROcodone/APAP 5-325MG [[place] 1 tab PO Q4HR PRN 3 Days #18 tab 09/01/20 5-325] Ibuprofen [Motrin] 600 mg PO Q6H #60 tab 09/01/20 Sulfamethox-Tmp 800-160Mg [Bactrim 1 tab PO Q12HR #14 tab 09/01/20 DS 800-160 mg] Amoxicillin 875 mg PO Q12HR 10 Days #20 tablet 04/25/21 Meclizine [Antivert] 25 mg PO TID PRN #15 tab 04/25/21 Allergies Allergy/AdvReac Type Severity Reaction Status Date / Time cefaclor [From [facility]] Allergy Rash/Hives Verified 11/04/24 06:27 Review of Systems ROS Statement: Those systems with pertinent positive or pertinent negative responses have been documented in the HPI. ROS Other: All systems not noted in ROS Statement are negative. Past Medical History Past Medical History: No Reported History History of Any Multi-Drug Resistant Organisms: None Reported Past Surgical History: Section, Tubal Ligation Additional Past Surgical History / Comment(s): tooth extraction Past Anesthesia/Blood Transfusion Reactions: No Reported Reaction Additional Past Anesthesia/Blood Transfusion Reaction / Comment(s): no hx blood transfusion Past Psychological History: Anxiety Smoking Status: Never smoker Past Alcohol Use History: None Reported Past Drug Use History: None Reported - Past Family History Mother Family Medical History: Cancer Additional Family Medical History / Comment(s): Grandfather General Exam Limitations: no limitations General appearance: alert, in no apparent distress Head exam: Present: atraumatic, normocephalic, normal inspection Eye exam: Present: normal appearance, PERRL, EOMI. Absent: scleral icterus, conjunctival injection, periorbital swelling ENT exam: Present: normal oropharynx, mucous membranes moist, normal external ear exam. Absent: TM's normal bilaterally (TM rupture, blood noted) Neck exam: Present: normal inspection, full ROM. Absent: tenderness, meningismus, lymphadenopathy Respiratory exam: Present: normal lung sounds bilaterally. Absent: respiratory distress, wheezes, rales, rhonchi, stridor Cardiovascular Exam: Present: regular rate, normal rhythm, normal heart sounds. Absent: systolic murmur, diastolic murmur, rubs, gallop, clicks Course Vital Signs 11/04/24 11/04/24 06:25 06:59 Temperature 97.9 F Pulse Rate 93 60 Respiratory 16 17 Rate Blood Pressure 154/86 128/78 O2 Sat by Pulse 100 98 Oximetry Medical Decision Making - Medical Decision Making Was pt. sent in by a medical professional or institution (, PA, [facility], urgent care, hospital, or fdc...) When possible be specific @ -No Did you speak to anyone other than the patient for history (EMS, parent, family, police, friend...)? What history was obtained from this source @ -No Did you review nursing and triage notes (agree or disagree)? Why? @ -I reviewed and agree with nursing and triage notes Were old charts reviewed (outside hosp., previous admission, EMS record, old EKG, old radiological studies, urgent care reports/EKG's, fdc records)? Report findings @ -No old charts were reviewed Differential Diagnosis (chest pain, altered mental status, abdominal pain women, abdominal pain men, vaginal bleeding, weakness, fever, dyspnea, syncope, headache, dizziness, GI bleed, back pain, seizure, CVA, palpatations, mental health, musculoskeletal)? @ -Otitis media otitis externa ruptured TM traumatic EKG interpreted by me (3pts min.). @ -None X-rays interpreted by me (1pt min.). @ -None done CT interpreted by me (1pt min.). @ -None done U/S interpreted by me (1pt. min.). @ -None done What testing was considered but not performed or refused? (CT, X-rays, U/S, labs)? Why? @ -None What meds were considered but not given or refused? Why? @ -None Did you discuss the management of the patient with other professionals (professionals i.e. , PA, [facility], lab, RT, psych nurse, clinical social work aide, carpenter's assistant, teacher, field artillery officer, rifle case repairer)? Give summary @ -No Was smoking cessation discussed for >3mins.? @ -No Was critical care preformed (if so, how long)? @ -No Were there social determinants of health that impacted care today? How? (Homelessness, low income, unemployed, alcoholism, drug addiction, transportation, low edu. Level, literacy, decrease access to med. care, skilled nursing, rehab)? @ -No Was there de-escalation of care discussed even if they declined (Discuss DNR or withdrawal of care, Hospice)? DNR status @ -No What co-morbidities impacted this encounter? (DM, HTN, Smoking, COPD, CAD, Cancer, CVA, ARF, Chemo, Hep., AIDS, mental health diagnosis, sleep apnea, morbid obesity)? @ -None Was patient admitted / discharged? Hospital course, mention meds given and route, prescriptions, significant lab abnormalities, going to OR and other pertinent info. @ -[Discharge patient has ruptured TM patient was placed on Ciprodex, follow-up with ENT return for as discussed. Undiagnosed new problem with uncertain prognosis? @ -No Drug Therapy requiring intensive monitoring for toxicity (Heparin, Nitro, Insulin, Cardizem)? @ -No Were any procedures done? @ -No Diagnosis/symptom? @ -Traumatic rupture TM left Acute, or Chronic, or Acute on Chronic? @ -Acute Uncomplicated (without systemic symptoms) or Complicated (systemic symptoms)? @ -uncomplicated Side effects of treatment? @ -No Exacerbation, Progression, or Severe Exacerbation? @ -No Poses a threat to life or bodily function? How? (Chest pain, [place], [place], pneumonia, PE, COPD, DKA, ARF, appy, cholecystitis, CVA, Diverticulitis, Homicidal, Suicidal, threat to staff... and all critical care pts) @ -No Disposition Clinical Impression: Tympanic membrane rupture, traumatic Disposition: HOME SELF-CARE Condition: Stable Instructions (If sedation given, give patient instructions): Ruptured Eardrum (ED) Additional Instructions: Use Ciprodex eardrops 4 drops twice daily for 7 days. Please return to the Emergency Department if symptoms worsen or any other concerns. Is patient prescribed a controlled substance at d/c from ED?: No Referrals: Nonstaff,Physician [REFERRING] - 1-2 days Eugene Osuna MD [STAFF PHYSICIAN] - 1-2 days Time of Disposition: 06:44
[2024-11-04 07:00] VITALS: BP 128/78; PULSE 60; RESP 17
[2024-11-04] MEDS: CIPROFLOXACIN-DEXAMETH 0.3-0.1% DROPS 7.5 ML BTL LEFT EAR STA (07:17)
== END 2024-11-04 07:28 | disposition home or self-care (01) ==
LOC: EC 06:22
DX: H72.92 Unspecified perforation of tympanic membrane, left ear (principal); Z88.1 Allergy status to other antibiotic agents
CPT/HCPCS: 99282